=== PATIENT | female | born 1945 | race Caucasian/White ===

== ENCOUNTER 2017-05-06 03:06 | Emergency (ER) | payer OTHER ==
[~2017-05-06] VITALS: Ht 167.6 cm; Wt 39.5 kg
[~2017-05-06 03:06] MED LIST: ALBU0.63 NEB; ALBU1AER INH; ASPI81TA82 PO; BECL80AE3 INH; CHEL50TA PO; COLON PROBIOTIC PO; GINSCAP3 PO; MAGN1SOL2 PO; MEGE40SU PO; MULTTAB6 PO; POLY119S PO; PREV30CA36 PO; STOO100C PO; VITA100018 PO; ZYRT10TA12 PO
[2017-05-06 03:08] VITALS: BP 127/75; PULSE 101; RESP 18; TEMP 98.3; O2SAT 96
[2017-05-06] MEDS ORDERED: CHOL10008 PO (03:24)
[2017-05-06] MEDS ORDERED: LANS30CA PO (03:24)
[2017-05-06] MEDS ORDERED: ASPI-516 CHEW (03:24)
[2017-05-06] MEDS ORDERED: POLY17S PO (03:24)
[2017-05-06] MEDS ORDERED: ZINC50TA2 PO (03:24)
[2017-05-06] MEDS ORDERED: DEXA2TAB PO (03:24)
[2017-05-06] MEDS ORDERED: SODIUM CHLORIDE 0.9% FLUSH 10 ML FLUSH IV FLUSH PRN (03:45)
[2017-05-06 03:46] VITALS: O2SAT 95
[2017-05-06 03:55] LABS: BLOOD GAS VENOUS HCO3 28 mmol/L (22-26); BLOOD GAS VENOUS O2 CONTENT 9.9 Vol % (9.0-17.0); BLOOD GAS VENOUS O2 HGB SAT 47 % (70-76); BLOOD GAS VENOUS PCO2 46 mmHg (44-48); BLOOD GAS VENOUS PO2 28 mmHg (35-40); BLOOD GAS VENOUS pH 7.41 (7.360-7.400); TEMP CORR TO 98.6
[2017-05-06 03:56] LABS: CRITICAL VALUE YES; FIO2 21 %; STAT YES
[2017-05-06 04:07] LABS: AUTOMATED NEUTROPHIL # 6.6 TH/MM3 (1.8-7.7); BASOPHIL # 0.4 TH/MM3 (0-0.2); BASOPHIL % 4.5 % (0.0-2.0); EOSINOPHIL # 0.3 TH/MM3 (0-0.4); EOSINOPHIL % 3.6 % (0.0-4.0); LYMPH % 15.2 % (9.0-44.0); LYMPHOCYTE # 1.4 TH/MM3 (1.0-4.8); MEAN CELL VOLUME 77.5 FL (80.0-100.0); MEAN CORPUSCULAR HEMOGLOBIN 25.7 PG (27.0-34.0); MEAN CORPUSCULAR HGB CONC 33.1 % (32.0-36.0); MONO % 7.1 % (0.0-8.0); NEUT % 69.6 % (16.0-70.0); PLATELET COUNT 326 TH/MM3 (150-450); RED BLOOD COUNT 5.55 MIL/MM3 (4.00-5.30); RED CELL DISTRIBUTION WIDTH 15.1 % (11.6-17.2); WHITE BLOOD COUNT 9.4 TH/MM3 (4.0-11.0)
[2017-05-06 04:09] LABS: HEMO FLAGS DIFF FINAL
[2017-05-06 04:19] LABS: CHLORIDE 104 MEQ/L (98-107); POTASSIUM 3.9 MEQ/L (3.5-5.1); SODIUM (NA) 137 MEQ/L (136-145)
[2017-05-06 04:23] LABS: ANION GAP 7 MEQ/L (5-15); BLOOD UREA NITROGEN 13 MG/DL (7-18)
[2017-05-06 04:26] LABS: ALT (GPT) 18 U/L (10-53); AST (GOT) 14 U/L (15-37); GLOMERULAR FILTRATION RATE 74 ML/MIN (>89)
[2017-05-06 04:27] LABS: TOTAL BILIRUBIN ADULT 0.4 MG/DL (0.2-1.0)
[2017-05-06 04:29] LABS: ALKALINE PHOSPHATASE 93 U/L (45-117)
[2017-05-06 04:51] LABS: BLOOD, URINE TRACE (NEG); GLUCOSE,URINE NEG (NEG); KETONE, URINE NEG (NEG); NITRITE,URINE NEG (NEG); PH, URINE 5.5 (5.0-8.5)
[2017-05-06 05:03] LABS: MUCUS URINE FEW /lpf (OCC); URINE COLOR YELLOW (YELLW/STRAW)
[2017-05-06 05:04] LABS: RBC, URINE 0-3 /hpf (0-3); SQUAMOUS EPITHELIAL CELL URINE 0-5 /hpf (0-5)
[2017-05-06 05:05] LABS: COMMENT (UR) CULTURE INDICATED; CULTURE IF INDICATED CULTURE INDICATED
--- NOTE | 2017-05-06 05:15 | RADRPT ---
EXAM DATE/TIME: 05/06/2017 04:43 [place] COMPARISON: CT ABDOMEN & PELVIS W/O CONTRAST, February 16, 2014, 10:12. CT ABDOMEN & PELVIS W/O CONTRAST, December 17, 2015, 7:36. INDICATIONS : Nausea and vomiting. Lower abdominal pain. ORAL CONTRAST: No oral contrast ingested. RADIATION DOSE: 4.44 CTDIvol (mGy) MEDICAL HISTORY : Diverticulitis. Carcinoma, breast. Gastroesophageal reflux disease. SURGICAL HISTORY : Colon resection. Hysterectomy. ENCOUNTER: Initial ACUITY: 2 days PAIN SCALE: 7/10 LOCATION: Bilateral lower quadrant TECHNIQUE: Volumetric scanning of the abdomen and pelvis was performed. Using automated exposure control and ad justment of the mA and/or kV according to patient size, radiation dose was kept as low as reasonably achievable to obtain optimal diagnostic quality images. DICOM format image data is available electro nically for review and comparison. FINDINGS: LOWER LUNGS: There are multiple areas of bronchiectasis with peripheral consolidation/tree in bud appearance. Ther e is atelectasis or consolidation of the posterior left lung base. LIVER: Homogeneous density without lesion. There is no dilation of the biliary tree. No calcified gallston es. SPLEEN: Normal size without lesion. PANCREAS: Within normal limits. KIDNEYS: Normal in size and shape. There is no mass or hydronephrosis. There is a 2 mm calcification seen at the left mid posterior abdomen. This could be a mid left ureteral stone or a calcification related to the ovarian vein in this region. This was present previously. This is more likely related to the ova linda vein. Hydronephrosis is not present. ADRENAL GLANDS: Within normal limits. VASCULAR: There is no aortic aneurysm. BOWEL/MESENTERY: There is a bowel anastomosis suture in the rectosigmoid region. There is a moderate amount of stool s een in the colon. ABDOMINAL WALL: There is atrophy of the rectus abdominal muscles. No hernia seen. RETROPERITONEUM: There is no lymphadenopathy. BLADDER: No wall thickening or mass. REPRODUCTIVE: The patient is status post hysterectomy. A pelvic mass is not seen. INGUINAL: There is no lymphadenopathy or hernia. MUSCULOSKELETAL: There is degenerative change of the lower lumbar spine. CONCLUSION: 1. Bronchiectasis at the lung bases and atelectasis at the left lung base. This was present previousl y. 2. 2 mm calcification at the left posterior mid abdomen related to either a need left ureteral stone or left ovarian vein calcification. This was present in 2016. Hydronephrosis is not present suggestin g a left ovarian vein calcification is more likely. 3. Status post colonic resection. There is a moderate amount of stool in the colon. Edgar Evans MD on May 06, 2017 at 5:05 Board Certified Radiologist. This report was verified electronically.
[2017-05-06] MEDS ORDERED: MIRA3350 PO ×2 (05:20→05:26)
[2017-05-06] MEDS ORDERED: CEPH-460 PO ×2 (05:20→05:26)
--- NOTE | 2017-05-06 05:20 | PD ---
HPI Chief Complaint: GI Complaint Time Seen by Provider: 03:15 Travel History International Travel<30 days: No Contact w/Intl Traveler<30days: No Traveled to known affect area: No History of Present Illness HPI Patient is a 72-year-old female presents emergency department for evaluation of the pubic pain some mild nausea. She is coming with her friend and roommate states that she's also been having just a very small amount of confusion intermittently. The patient reports she is on hospice, however she is unsure of her admitting diagnosis. She states she is on oxygen at home has a history of COPD and one of the nurses reported that she was on hospice for COPD, the patient cannot confirm this however. She denies any fever denies any blood in the stool endorses some mild dysuria. She states her symptoms are mild, gradually worsening over the past 3 weeks. Context is multiple abdominal surgeries. History of diverticular abscess and colon resection. PFSH Past Medical History Hx Anticoagulant Therapy: Yes (81 MG ASA) Cancer: Yes (HX BREAST CA) COPD: Yes Diminished Hearing: No Diverticulitis: Yes Gastrointestinal Disorders: Yes (DIVERTICULITIS) GERD: Yes Medical other: Yes (Atypical TB ) Respiratory: Yes (COPD) Tetanus Vaccination: Unknown Influenza Vaccination: No Menopausal: Yes Past Surgical History Abdominal Surgery: Yes (colon resection) Gynecologic Surgery: Yes (R BREAST CA 2005) Hysterectomy: Yes (1979) Tonsillectomy: Yes (CHILDHOOD) Social History Alcohol Use: No Tobacco Use: No (FORMER quit 1968) Substance Use: No Allergies-Medications (Allergen,Severity, Reaction): Coded Allergies: diatrizoate meglumine (Unverified Allergy, Severe, 05/06/17) gadobenic acid (Unverified Allergy, Severe, 05/06/17) gadodiamide (Unverified Allergy, Severe, 05/06/17) gadoteridol (Unverified Allergy, Severe, 05/06/17) iodixanol (Unverified Allergy, Severe, 05/06/17) ciprofloxacin (Unverified Allergy, Intermediate, VOMITS, 05/06/17) sulfamethoxazole (Unverified Allergy, Intermediate, NASUEA - SKIN RASH, ) trimethoprim (Unverified Allergy, Intermediate, NASUEA - SKIN RASH, ) Sulfa (Sulfonamide Antibiotics) (Unverified Allergy, Mild, 05/06/17) iohexol (Unverified Allergy, Unknown, PT HAS DELAYED REACTION/APPROX 1HR AFTER, 05/06/17) doxycycline (Unverified Adverse Reaction, Intermediate, NAUSEA/VOMITING, 05/06/17) Reported Meds & Prescriptions Reported Meds & Active Scripts Active Miralax Powder (Polyethylene Glycol 3350 Powder) 17 Gm Powd 17 Gm PO DAILY 7 Days Mix and dissolve one measuring cap-ful (17 grams) in water or juice. Keflex (Cephalexin) 500 Mg Capsule 500 Mg PO Q6H 3 Days Reported Polyethylene Glycol 3350 Powder (Polyethylene Glycol) 17 Gram Pow 17 Gm PO DAILY Dexamethasone 2 Mg Tab 2 Mg PO BID Lansoprazole 30 Mg Capdr 30 Mg PO DAILY Vitamin D3 (Cholecalciferol) 1,000 Unit Cap 1,000 Units PO DAILY Aspirin 81 Mg Chew 81 Mg CHEW DAILY Zinc Gluconate 50 Mg Tab 50 Mg PO DAILY [Colon Probiotic] 1 Cap PO DAILY Review of Systems Except as stated in HPI: all other systems reviewed are Neg Physical Exam Narrative GENERAL: Well-developed thin, bordering on cachectic in no distress. SKIN: Focused skin assessment warm/dry. HEAD: Atraumatic. Normocephalic. EYES: Pupils equal and round. No scleral icterus. No injection or drainage. ENT: No nasal bleeding or discharge. Mucous membranes pink and moist. NECK: Trachea midline. No JVD. CARDIOVASCULAR: Regular rate and rhythm. No murmur appreciated. RESPIRATORY: No accessory muscle use. Clear to auscultation. Breath sounds equal bilaterally. GASTROINTESTINAL: Abdomen soft, non-tender, nondistended. Hepatic and splenic margins not palpable. MUSCULOSKELETAL: No obvious deformities. No clubbing. No cyanosis. No edema. NEUROLOGICAL: Awake and alert. No obvious cranial nerve deficits. Motor grossly within normal limits. Normal speech. PSYCHIATRIC: Appropriate mood and affect; insight and judgment normal. Data Data Last Documented VS Vital Signs Date Time Temp Pulse Resp B/P (MAP) Pulse Ox O2 Delivery O2 Flow Rate FiO2 05/06/17 05:30 95 18 123/61 (81) 95 05/06/17 03:46 Room Air 05/06/17 03:08 98.3 Orders Orders Complete Blood Count With Diff (05/06/17 03:34) Comprehensive Metabolic Panel (05/06/17 03:34) Lipase (05/06/17 03:34) Urinalysis - C+S If Indicated (05/06/17 03:34) Iv Access Insert/Monitor (05/06/17 03:34) Ecg Monitoring (05/06/17 03:34) Oximetry (05/06/17 03:34) Sodium Chloride 0.9% Flush (Ns Flush) (05/06/17 03:45) Electrocardiogram (05/06/17 03:34) Resp Blood Gas Venous (05/06/17 ) Blood Gas Venous (Vbg) (05/06/17 03:45) Ct Abd/Pel W/O Iv Contrast (05/06/17 ) Ed Discharge Order (05/06/17 05:25) Urine Culture (05/06/17 04:30) Labs Laboratory Tests Test 05/06/17 03:40 05/06/17 03:45 05/06/17 04:30 White Blood Count 9.4 TH/MM3 Red Blood Count 5.55 MIL/MM3 Hemoglobin 14.3 GM/DL Hematocrit 43.0 % Mean Corpuscular Volume 77.5 FL Mean Corpuscular Hemoglobin 25.7 PG Mean Corpuscular Hemoglobin Concent 33.1 % Red Cell Distribution Width 15.1 % Platelet Count 326 TH/MM3 Mean Platelet Volume 8.2 FL Neutrophils (%) (Auto) 69.6 % Lymphocytes (%) (Auto) 15.2 % Monocytes (%) (Auto) 7.1 % Eosinophils (%) (Auto) 3.6 % Basophils (%) (Auto) 4.5 % Neutrophils # (Auto) 6.6 TH/MM3 Lymphocytes # (Auto) 1.4 TH/MM3 Monocytes # (Auto) 0.7 TH/MM3 Eosinophils # (Auto) 0.3 TH/MM3 Basophils # (Auto) 0.4 TH/MM3 CBC Comment DIFF FINAL Differential Comment Blood Urea Nitrogen 13 MG/DL Creatinine 0.77 MG/DL Random Glucose 119 MG/DL Total Protein 7.3 GM/DL Albumin 2.6 GM/DL Calcium Level 9.2 MG/DL Alkaline Phosphatase 93 U/L Aspartate Amino Transf (AST/SGOT) 14 U/L Alanine Aminotransferase (ALT/SGPT) 18 U/L Total Bilirubin 0.4 MG/DL Sodium Level 137 MEQ/L Potassium Level 3.9 MEQ/L Chloride Level 104 MEQ/L Carbon Dioxide Level 26.0 MEQ/L Anion Gap 7 MEQ/L Estimat Glomerular Filtration Rate 74 ML/MIN Lipase 250 U/L Blood Gas Puncture Site I V LINE Blood Gas Patient Temperature 98.6 Venous Blood pH 7.41 Venous Blood Partial Pressure CO2 46 mmHg Venous Blood Partial Pressure O2 28 mmHg Venous Blood HCO3 28 mmol/L Venous Blood Oxygen Saturation 47 % Venous Blood Oxygen Content 9.9 Vol % Venous Blood Base Excess 4.0 mmol/L Blood Gas Inspired Oxygen 21 % Urine Color YELLOW Urine Turbidity CLEAR Urine pH 5.5 Urine Specific [place] 1.023 Urine Protein TRACE mg/dL Urine Glucose (UA) NEG mg/dL Urine Ketones NEG mg/dL Urine Occult Blood TRACE Urine Nitrite NEG Urine Bilirubin NEG Urine Leukocyte Esterase SMALL Urine RBC 0-3 /hpf Urine WBC 3-5 /hpf Urine WBC Clumps RARE Urine Squamous Epithelial Cells 0-5 /hpf Urine Mucus FEW /lpf Microscopic Urinalysis Comment CULTURE INDICATED MDM Medical Decision Making Medical Screen Exam Complete: Yes Emergency Medical Condition: Yes Differential Diagnosis Hypercapnia seems unlikely, UTI, constipation, acute abdomen unlikely. Narrative Course Patient roomed in emergency department, labs are wholly reassuring, PCO2 is normal. She's been satting well on room air and no need for oxygen supplementation in the emergency department. She does have evidence for UTI it minimally. CAT scan of the abdomen was obtained which shows no acute pathology and wholly unchanged from May 2016 when she presented for very similar circumstances she left that day with diagnosis of constipation and urinary tract action and while her pubic pain cannot be completely identified these findings were found today. She was offered pain medicine and declined. Is on antibiotics and MiraLAX. Discussed needs follow-up the primary care physician as well as her hospice physician clarify her hospice status. She is stable for discharge. Diagnosis Primary Impression: Pelvic pain in female Additional Impressions: UTI (urinary tract infection) Constipation Patient Instructions: Acute Abdominal Pain (GEN), General Instructions Med/Other Pt SpecificInfo: Prescription(s) given Scripts Polyethylene Glycol 3350 Powder (Miralax Powder) 17 Gm Powd 17 GM PO DAILY for Constipation for 7 Days, #1 CAN 0 Refills Mix and dissolve one measuring cap-ful (17 grams) in water or juice. Prov: Bao Mitchell MD 05/06/17 Cephalexin (Keflex) 500 Mg Capsule 500 MG PO Q6H for Infection for 3 Days, #12 CAP 0 Refills Prov: Bao Mitchell MD 05/06/17 Disposition: 01 DISCHARGE HOME Condition: Stable Bao Mitchell MD May 06, 2017 05:20
[2017-05-06 05:30] VITALS: BP 123/61
--- NOTE | 2017-05-06 06:59 | EKG ---
Date Performed: 05/06/2017 Time Performed: 04:01:04 PTAGE: 72 years EKG: Sinus rhythm POSSIBLE LEFT ATRIAL ENLARGEMENT NONSPECIFIC T-WAVE ABNORMALITY BORDERLINE ECG PREVIOUS TRACING : 04/30/2004 08.50 No significant change from previous tracing noted. DOCTOR: Tima Sanchez Interpretating Date/Time 05/06/2017 06:59:09
== END 2017-05-06 05:37 | disposition home or self-care (01) ==
LOC: PHED 03:06
DX: R10.2 Pelvic and perineal pain (principal); N39.0 Urinary tract infection, site not specified; K59.00 Constipation, unspecified; R11.0 Nausea; R41.0 Disorientation, unspecified; R94.31 Abnormal electrocardiogram [ECG] [EKG]; Z99.81 Dependence on supplemental oxygen; Z79.82 Long term (current) use of aspirin; Z85.3 Personal history of malignant neoplasm of breast; Z87.09 Personal history of other diseases of the respiratory system; Z87.19 Personal history of other diseases of the digestive system
CPT/HCPCS: 74176; 80053; 81001; 82805; 83690; 85025; 87086; 93005; 99285